=== PATIENT | female | born 1995 | race African-American/Black ===

== ENCOUNTER 2019-01-21 01:44 | Emergency (ER) | payer MEDICAID ==
[~2019-01-21] VITALS: Ht 162.6 cm; Wt 59.0 kg
[2019-01-21 02:05] VITALS: BP 129/70
[2019-01-21] MEDS ORDERED: DexAMETHasone SOD PHOS 10MG/1ML VIAL INJ IM ONE (05:00)
[2019-01-21] MEDS ORDERED: cefTRIAXone SOD 1,000 MG VL IM ONE (05:00)
[2019-01-21] MEDS ORDERED: BENZOCAINE (DENTAL) 20 % SPRAY 60ML MT ONE (05:00)
[2019-01-21] MEDS ORDERED: ACETAMINOPHEN/CODEINE#3 (300/30mg) TAB PO ONE (05:00)
== END 2019-01-21 05:57 | disposition home or self-care (01) ==
LOC: ER 01:44
DX: K08.89 Other specified disorders of teeth and supporting structures (principal); Z88.8 Allergy status to other drugs, medicaments and biological substances
CPT/HCPCS: 96372; 99283; J0696; J1100

== ENCOUNTER 2021-06-09 10:45 | Observation (INO) | payer MEDICAID ==
[~2021-06-09] VITALS: Ht 162.6 cm; Wt 69.4 kg
[2021-06-09 12:17] LABS: Basophils # (auto) 0 10 ^3/uL (0-0.2); Basophils % (auto) 0.4 % (0.0-2.0); Eosinophils # (auto) 0 10 ^3/uL (0-0.8); Eosinophils % (auto) 0.3 % (0.0-7.0); Hematocrit 32.4 % (36.0-46.0); Hemoglobin 11.4 g/dL (12.2-16.2); Lymphocytes # (auto) 0.4 10 ^3/uL (0.4-5.4); Lymphocytes % (auto) 4.5 % (10.0-50.0); Mean Corpuscular Hemoglobin 30.6 pg (28.0-32.0); Mean Corpuscular Hgb Conc. 35.2 g/dL (32.0-36.0); Mean Corpuscular Volume 86.8 fL (80.0-100.0); Monocytes # (auto) 1.3 10 ^3/uL (0-1.3); Monocytes % (auto) 15.6 % (0.0-12.0); Neutrophils # (auto) 6.8 10 ^3/uL (1.6-8.6); Neutrophils % (auto) 79.2 % (37.0-80.0); Red Blood Cells 3.73 10^6/uL (4.0-5.20); Red Cell Distribution Width 12.9 % (11.8-14.3); White Blood Cell 8.6 10^3/uL (4.4-10.8)
[2021-06-09 12:33] LABS: Albumin 2.6 g/dL (3.4-5.0); Calcium 8.3 mg/dL (8.5-10.1); Potassium 3.7 mmol/L (3.5-5.1)
[2021-06-09 12:37] LABS: BUN/Creatinine Ratio 10.2; Bilirubin, Total 0.2 mg/dL (0.2-1.0); Total Protein 6.6 g/dL (6.4-8.2)
[2021-06-09 12:55] LABS: Urine Bacteria NONE SEEN /hpf (None Seen); Urine Blood Negative /uL (Negative); Urine Mucus FEW (None Seen); Urine Specific Gravity 1.019 (1.001-1.035); Urine WBC 1 /hpf (0 - 5)
[2021-06-09 13:00] LABS: Amphetamine Screen, Urine NEGATIVE (NEGATIVE); Barbiturate Scree,Urine NEGATIVE (NEGATIVE); Benzodiazephine Screen, Urine NEGATIVE (NEGATIVE); Cannabinoid Screen, Urine POSITIVE (NEGATIVE); Cocaine Screen, Urine NEGATIVE (NEGATIVE); Opiate Scree,Urine NEGATIVE (NEGATIVE); Phencyclidine Screen, Urine NEGATIVE (NEGATIVE)
== END 2021-06-09 14:03 | disposition home or self-care (01) ==
LOC: LDRP 10:45
PROVIDERS: ADMIT Obstetrics & Gynecology; ATTEND Obstetrics & Gynecology
DX: O98.512 Other viral diseases complicating pregnancy, second trimester (principal); U07.1 COVID-19; O60.02 Preterm labor without delivery, second trimester; Z3A.25 25 weeks gestation of pregnancy
CPT/HCPCS: 36415; 59025; 76775; 76805; 80053; 80307; 81001; 81002; 85025; 87426; 94760; G0378; G0379

== ENCOUNTER 2022-02-06 11:27 | Inpatient (IN) | payer MEDICAID ==
[~2022-02-06] VITALS: Ht 162.6 cm; Wt 72.3 kg
[2022-02-06 12:13] LABS: Basophils # (auto) 0 10 ^3/uL (0-0.2); Basophils % (auto) 0.4 % (0.0-2.0); Eosinophils # (auto) 0 10 ^3/uL (0-0.8); Hematocrit 39.8 % (36.0-46.0); Hemoglobin 12.7 g/dL (12.2-16.2); Lymphocytes # (auto) 1.3 10 ^3/uL (0.4-5.4); Lymphocytes % (auto) 10.6 % (10.0-50.0); Mean Corpuscular Hemoglobin 26.4 pg (28.0-32.0); Mean Corpuscular Hgb Conc. 31.9 g/dL (32.0-36.0); Mean Corpuscular Volume 82.7 fL (80.0-100.0); Monocytes # (auto) 0.7 10 ^3/uL (0-1.3); Monocytes % (auto) 6.1 % (0.0-12.0); Neutrophils % (auto) 82.9 % (37.0-80.0); Red Blood Cells 4.81 10^6/uL (4.0-5.20); Red Cell Distribution Width 15.1 % (11.8-14.3)
[2022-02-06] MEDS ORDERED: ACETAMINOPHEN 325 MG TAB PO ONE (12:15)
[2022-02-06] MEDS ORDERED: LACTATED RINGER'S 1,000 ML IV ONE (12:15)
[2022-02-06 12:29] LABS: Albumin 3.7 g/dL (3.4-5.0); Magnesium 1.9 mg/dL (1.6-2.6)
[2022-02-06 12:34] LABS: BUN/Creatinine Ratio 8.2; Bilirubin, Total 0.4 mg/dL (0.2-1.0); Total Protein 7.3 g/dL (6.4-8.2)
[2022-02-06] MEDS ORDERED: SODIUM CHLORIDE 0.9% 1,000 ML IV ONE ×2 (13:45→18:30)
[2022-02-06] MEDS ORDERED: CLINDAMYCIN 300MG IV 50 ML IV ONE (13:45)
[2022-02-06] MEDS ORDERED: IOHEXOL 300 MG/ML 100ML BOTTLE IJ ONE (13:52)
[2022-02-06] MEDS ORDERED: VANCOMYCIN 1GM/250ML 250 ML IV ONE (15:45)
[2022-02-06 15:46] LABS: Urine Bacteria NONE SEEN /hpf (None Seen); Urine Blood Negative /uL (Negative); Urine Specific Gravity 1.015 (1.001-1.035); Urine WBC 1 /hpf (0 - 5)
[2022-02-06] MEDS ORDERED: SODIUM CHLORIDE 0.9% 2,000 ML IV ONE (16:30)
[2022-02-06] MEDS ORDERED: VANCOMYCIN PER PHARMACY 0 MG IV SCH (18:30)
[2022-02-06] MEDS ORDERED: ONDANSETRON HCL 4 MG/2 ML VIAL IV PRN (18:30)
[2022-02-06] MEDS ORDERED: CLINDAMYCIN 600MG IV 50 ML IV ONE (18:30)
[2022-02-06 19:54] LABS: INR 1.14 (0.9-1.15)
[2022-02-06] MEDS: MORPHINE SULFATE INJ 2 MG/ml SYRG IV PRN (21:14)
[2022-02-06 22:48] VITALS: BP 95/52
[2022-02-07] MEDS: MORPHINE SULFATE INJ 2 MG/ml SYRG IV PRN ×2 (02:22→22:34)
[2022-02-07 05:00] VITALS: BP 97/46
[2022-02-07 05:12] LABS: Potassium 3.7 mmol/L (3.5-5.1)
[2022-02-07 05:17] LABS: Bilirubin, Total 0.4 mg/dL (0.2-1.0); Calcium 8.2 mg/dL (8.5-10.1); Total Protein 6.8 g/dL (6.4-8.2)
[2022-02-07 05:52] LABS: Basophils # (auto) 0 10 ^3/uL (0-0.2); Basophils % (auto) 0.2 % (0.0-2.0); Eosinophils # (auto) 0 10 ^3/uL (0-0.8); Mean Corpuscular Hemoglobin 26.8 pg (28.0-32.0); Mean Corpuscular Hgb Conc. 32.4 g/dL (32.0-36.0); Mean Corpuscular Volume 82.8 fL (80.0-100.0); Monocytes # (auto) 1.4 10 ^3/uL (0-1.3)
[2022-02-07 05:57] LABS: Eosinophils % (auto) 0.1 % (0.0-7.0); Hematocrit 35.9 % (36.0-46.0); Hemoglobin 11.6 g/dL (12.2-16.2); Lymphocytes # (auto) 2.1 10 ^3/uL (0.4-5.4); Lymphocytes % (auto) 17.6 % (10.0-50.0); Monocytes % (auto) 12.1 % (0.0-12.0); Neutrophils # (auto) 8.3 10 ^3/uL (1.6-8.6); Red Blood Cells 4.33 10^6/uL (4.0-5.20); Red Cell Distribution Width 14.9 % (11.8-14.3); White Blood Cell 11.9 10^3/uL (4.4-10.8)
[2022-02-07] MEDS: VANCOMYCIN 1GM/250ML 250 ML IV SCH ×2 (06:44→19:43)
[2022-02-07 09:00] VITALS: BP 117/71
[2022-02-07] MEDS: ENOXAPARIN SOD 40 MG/0.4 ML SYRINGE SC SCH (09:01)
[2022-02-07 13:00] VITALS: BP 116/67
[2022-02-07] MEDS: levoFLOXacin 500MG 100 ML IV SCH (16:00)
[2022-02-07 17:00] VITALS: BP 102/93
[2022-02-07 22:00] VITALS: BP 114/81
[2022-02-08] MEDS ORDERED: traMADol HCL 50 MG TAB PO PRN (01:30)
[2022-02-08] MEDS ORDERED: IBUPROFEN 400 MG TAB PO PRN (01:30)
[2022-02-08 05:00] VITALS: BP 120/72
[2022-02-08 06:59] LABS: Basophils # (auto) 0 10 ^3/uL (0-0.2); Basophils % (auto) 0.2 % (0.0-2.0); Eosinophils # (auto) 0 10 ^3/uL (0-0.8); Eosinophils % (auto) 0.4 % (0.0-7.0); Hematocrit 34.6 % (36.0-46.0); Hemoglobin 11.4 g/dL (12.2-16.2); Lymphocytes # (auto) 2.5 10 ^3/uL (0.4-5.4); Lymphocytes % (auto) 27.1 % (10.0-50.0); Mean Corpuscular Hemoglobin 27.2 pg (28.0-32.0); Mean Corpuscular Volume 82.5 fL (80.0-100.0); Monocytes # (auto) 1.1 10 ^3/uL (0-1.3); Monocytes % (auto) 11.5 % (0.0-12.0); Neutrophils # (auto) 5.7 10 ^3/uL (1.6-8.6); Neutrophils % (auto) 60.8 % (37.0-80.0); Nucleated Red Blood Cells % 0.1 %; Red Blood Cells 4.19 10^6/uL (4.0-5.20); Red Cell Distribution Width 15.1 % (11.8-14.3); White Blood Cell 9.3 10^3/uL (4.4-10.8)
[2022-02-08 07:14] LABS: Albumin 2.8 g/dL (3.4-5.0); Calcium 8.6 mg/dL (8.5-10.1); Potassium 3.7 mmol/L (3.5-5.1)
[2022-02-08 07:16] LABS: BUN/Creatinine Ratio 4.1; Phosphorus 3.5 mg/dL (2.5-4.90)
[2022-02-08 09:00] VITALS: BP 133/94
[2022-02-08] MEDS: VANCOMYCIN 1GM/250ML 250 ML IV SCH (09:15)
[2022-02-08] MEDS: ENOXAPARIN SOD 40 MG/0.4 ML SYRINGE SC SCH (09:16)
[2022-02-08] MEDS: levoFLOXacin 500MG 100 ML IV SCH (09:19)
[2022-02-08] MEDS ORDERED: FAMOTIDINE 20 MG TAB PO SCH (10:00)
[2022-02-13] MEDS ORDERED: VANCOMYCIN 1GM/250ML 250 ML IV STA (00:03)
== END 2022-02-08 14:35 | disposition left against medical advice (07) | DRG 385 ==
LOC: ER 11:33 → OVERFLOW 18:20 → WEST WING 22:20
PROVIDERS: ADMIT Registered Nurse; ATTEND Hospitalist
DX: N61.1 Abscess of the breast and nipple (principal); Z53.29 Procedure and treatment not carried out because of patient's decision for other reasons; Z98.82 Breast implant status
CPT/HCPCS: 36415; 71260; 76642; 80048; 80053; 80069; 80202; 81001; 81025; 83036; 83615; 83735; 83880; 84484; 84702; 85025; 85379; 85610; 87040; 87076; 93005; 96361; 96365; 96375; G0378; J1956; J2405; J3490

== ENCOUNTER 2022-02-12 18:48 | Inpatient (IN) | payer MEDICAID ==
[~2022-02-12] VITALS: Ht 162.6 cm; Wt 61.0 kg
[2022-02-12 19:53] LABS: Urine Bacteria NONE SEEN /hpf (None Seen); Urine Blood Negative /uL (Negative); Urine Mucus FEW (None Seen); Urine Specific Gravity 1.026 (1.001-1.035); Urine WBC 1 /hpf (0 - 5)
[2022-02-12 22:02] LABS: Basophils # (auto) 0.1 10 ^3/uL (0-0.2); Basophils % (auto) 0.6 % (0.0-2.0); Eosinophils # (auto) 0.1 10 ^3/uL (0-0.8); Eosinophils % (auto) 0.7 % (0.0-7.0); Hematocrit 36.5 % (36.0-46.0); Hemoglobin 11.6 g/dL (12.2-16.2); Lymphocytes # (auto) 2.4 10 ^3/uL (0.4-5.4); Lymphocytes % (auto) 19.8 % (10.0-50.0); Mean Corpuscular Hemoglobin 25.8 pg (28.0-32.0); Mean Corpuscular Hgb Conc. 31.8 g/dL (32.0-36.0); Mean Corpuscular Volume 81.2 fL (80.0-100.0); Monocytes # (auto) 1.4 10 ^3/uL (0-1.3); Monocytes % (auto) 11.2 % (0.0-12.0); Neutrophils # (auto) 8.2 10 ^3/uL (1.6-8.6); Neutrophils % (auto) 67.7 % (37.0-80.0); Red Cell Distribution Width 14.6 % (11.8-14.3); White Blood Cell 12.2 10^3/uL (4.4-10.8)
[2022-02-12 22:17] LABS: Albumin 3.4 g/dL (3.4-5.0); BUN/Creatinine Ratio 8.9; Calcium 8.8 mg/dL (8.5-10.1); Potassium 3.7 mmol/L (3.5-5.1)
[2022-02-12 22:20] LABS: Bilirubin, Total 0.2 mg/dL (0.2-1.0); Total Protein 7.2 g/dL (6.4-8.2)
[2022-02-13] MEDS ORDERED: VANCOMYCIN 1GM/250ML 250 ML IV ONE (05:00)
[2022-02-13] MEDS ORDERED: DOCUSATE SOD 100 MG CAP PO PRN ×2 (09:00→21:30)
[2022-02-13] MEDS ORDERED: HYDROcodone-ACET 5/325MG TAB PO PRN (09:00)
[2022-02-13] MEDS ORDERED: ACETAMINOPHEN 325 MG TAB PO PRN ×2 (09:00→21:30)
[2022-02-13] MEDS ORDERED: ONDANSETRON HCL 4 MG/2 ML VIAL IV PRN ×2 (09:00→21:30)
[2022-02-13] MEDS ORDERED: MORPHINE SULFATE INJ 2 MG/ml SYRG IV PRN (09:00)
[2022-02-13] MEDS ORDERED: PIPERACILLIN-TAZOB 3.375GM 100 ML IV SCH (09:15)
[2022-02-13] MEDS: SODIUM CHLORIDE 0.9% 1,000 ML IV SCH ×2 (09:38→17:45)
[2022-02-13] MEDS ORDERED: ENOXAPARIN SOD 40 MG/0.4 ML SYRINGE SC SCH (10:00)
[2022-02-13 17:34] VITALS: BP 118/82
[2022-02-13 17:46] VITALS: BP 118/82
[2022-02-13 18:00] VITALS: BP 118/82
[2022-02-13] MEDS: PIPERACILLIN-TAZOB 3.375GM 100 ML IV SCH (18:00)
[2022-02-13 22:00] VITALS: BP 112/76
[2022-02-14] MEDS: SODIUM CHLORIDE 0.9% 1,000 ML IV SCH ×2 (01:40→09:54)
[2022-02-14] MEDS: PIPERACILLIN-TAZOB 3.375GM 100 ML IV SCH ×3 (04:54→17:45)
[2022-02-14 05:00] VITALS: BP 105/62
[2022-02-14 06:13] LABS: Basophils # (auto) 0 10 ^3/uL (0-0.2); Basophils % (auto) 0.3 % (0.0-2.0); Eosinophils # (auto) 0.1 10 ^3/uL (0-0.8); Eosinophils % (auto) 1.2 % (0.0-7.0); Hematocrit 34.7 % (36.0-46.0); Hemoglobin 11.5 g/dL (12.2-16.2); Lymphocytes # (auto) 1.9 10 ^3/uL (0.4-5.4); Lymphocytes % (auto) 19.9 % (10.0-50.0); Mean Corpuscular Hgb Conc. 33.3 g/dL (32.0-36.0); Mean Corpuscular Volume 81.1 fL (80.0-100.0); Monocytes % (auto) 9.7 % (0.0-12.0); Neutrophils # (auto) 6.8 10 ^3/uL (1.6-8.6); Neutrophils % (auto) 68.9 % (37.0-80.0); Red Blood Cells 4.28 10^6/uL (4.0-5.20); Red Cell Distribution Width 14.7 % (11.8-14.3); White Blood Cell 9.8 10^3/uL (4.4-10.8)
[2022-02-14 06:33] LABS: Potassium 4.1 mmol/L (3.5-5.1)
[2022-02-14 06:38] LABS: BUN/Creatinine Ratio 7.8; Calcium 8.9 mg/dL (8.5-10.1)
[2022-02-14 06:41] LABS: Bilirubin, Total 0.2 mg/dL (0.2-1.0); Total Protein 6.8 g/dL (6.4-8.2)
[2022-02-14 08:23] VITALS: BP 109/76
[2022-02-14] MEDS: ENOXAPARIN SOD 40 MG/0.4 ML SYRINGE SC SCH (09:22)
[2022-02-14] MEDS: HYDROcodone-ACET 5/325MG TAB PO PRN ×2 (09:46→16:09)
[2022-02-14] MEDS ORDERED: levoFLOXacin 500MG 100 ML IV SCH (10:00)
[2022-02-14 12:01] VITALS: BP 114/66
[2022-02-14 16:47] VITALS: BP 101/61
[2022-02-14] MEDS: MORPHINE SULFATE INJ 2 MG/ml SYRG IV PRN (21:19)
[2022-02-14 22:00] VITALS: BP 111/76
[2022-02-15] MEDS: PIPERACILLIN-TAZOB 3.375GM 100 ML IV SCH ×4 (02:12→18:24)
[2022-02-15 05:00] VITALS: BP 98/59
[2022-02-15] MEDS: HYDROcodone-ACET 5/325MG TAB PO PRN ×3 (05:01→22:56)
[2022-02-15 07:55] VITALS: BP 114/66
[2022-02-15 08:54] VITALS: BP 114/66
[2022-02-15] MEDS: MORPHINE SULFATE INJ 2 MG/ml SYRG IV PRN ×2 (11:12→18:25)
[2022-02-15] MEDS: ENOXAPARIN SOD 40 MG/0.4 ML SYRINGE SC SCH (11:12)
[2022-02-15 12:52] VITALS: BP 114/73
[2022-02-15 17:00] VITALS: BP 103/63
[2022-02-15 22:00] VITALS: BP 111/70
[2022-02-16] MEDS: PIPERACILLIN-TAZOB 3.375GM 100 ML IV SCH ×3 (01:45→18:20)
[2022-02-16 05:00] VITALS: BP 91/51
[2022-02-16 09:00] VITALS: BP 125/75
[2022-02-16] MEDS: HYDROcodone-ACET 5/325MG TAB PO PRN ×2 (09:55→20:01)
[2022-02-16] MEDS: ENOXAPARIN SOD 40 MG/0.4 ML SYRINGE SC SCH (10:00)
[2022-02-16 13:00] VITALS: BP 111/79
[2022-02-16 16:22] VITALS: BP 106/68
[2022-02-16 22:00] VITALS: BP 125/67
[2022-02-17] MEDS: PIPERACILLIN-TAZOB 3.375GM 100 ML IV SCH ×2 (01:52→10:01)
[2022-02-17 05:00] VITALS: BP 109/74
[2022-02-17 09:00] VITALS: BP 109/68
[2022-02-17] MEDS: ENOXAPARIN SOD 40 MG/0.4 ML SYRINGE SC SCH (10:00)
[2022-02-17] MEDS: HYDROcodone-ACET 5/325MG TAB PO PRN (10:02)
[2022-02-17 13:00] VITALS: BP 102/70
== END 2022-02-17 15:05 | disposition left against medical advice (07) | DRG 385 ==
LOC: ER 18:48 → OVERFLOW 02-13 14:27 → EAST 02-13 17:22
PROVIDERS: ADMIT Internal Medicine; ATTEND Internal Medicine
DX: N61.1 Abscess of the breast and nipple (principal); E88.09 Other disorders of plasma-protein metabolism, not elsewhere classified; R79.9 Abnormal finding of blood chemistry, unspecified; D64.9 Anemia, unspecified; N39.0 Urinary tract infection, site not specified; Z20.822 Contact with and (suspected) exposure to COVID-19; Z53.29 Procedure and treatment not carried out because of patient's decision for other reasons; Z98.82 Breast implant status; Z91.013 Allergy to seafood; Z88.8 Allergy status to other drugs, medicaments and biological substances
CPT/HCPCS: 36415; 76642; 80053; 81001; 83605; 84484; 84702; 85025; 87040; 87081; 93005; 93306; 96365; 96367; 96375; G0378; J2405; J2543

== ENCOUNTER 2023-12-24 08:27 | Inpatient (IN) | payer OTHER ==
[~2023-12-24] VITALS: Ht 162.6 cm; Wt 90.7 kg
[2023-12-24] MEDS ORDERED: PHISODERM TOP SOLN 240ML BTL TOP PRN (08:45)
[2023-12-24] MEDS ORDERED: WITCH HAZEL-GLYCERIN PAD TOP PRN (08:45)
[2023-12-24] MEDS ORDERED: DERMOPLAST 60ML BOTTLE TOP PRN (08:45)
[2023-12-24] MEDS ORDERED: LIDOCAINE 2%HCL (LOCAL ANESTH.) INJ 20ML MDV IJ PRN (08:45)
[2023-12-24 09:14] LABS: Basophils # (auto) 0 10 ^3/uL (0-0.2); Basophils % (auto) 0.1 % (0.0-2.0); Eosinophils # (auto) 0 10 ^3/uL (0-0.8); Eosinophils % (auto) 0.4 % (0.0-7.0); Hematocrit 30.8 % (36.0-46.0); Lymphocytes # (auto) 2.9 10 ^3/uL (0.4-5.4)
[2023-12-24 09:15] LABS: Hemoglobin 10.1 g/dL (12.2-16.2); Lymphocytes % (auto) 24.5 % (10.0-50.0); Mean Corpuscular Hemoglobin 24.8 pg (28.0-32.0); Mean Corpuscular Hgb Conc. 32.8 g/dL (32.0-36.0); Mean Corpuscular Volume 75.4 fL (80.0-100.0); Monocytes # (auto) 1.4 10 ^3/uL (0-1.3); Monocytes % (auto) 12.1 % (0.0-12.0); Neutrophils # (auto) 7.5 10 ^3/uL (1.6-8.6); Neutrophils % (auto) 62.9 % (37.0-80.0); Nucleated Red Blood Cells % 0.1 %; Red Blood Cells 4.08 10^6/uL (4.0-5.20); Red Cell Distribution Width 16.2 % (11.8-14.3)
[2023-12-24 09:29] LABS: Alanine Aminotransferase 11 U/L (7-40); Albumin 3.6 g/dL (3.2-4.8); Alkaline Phosphatase 244 U/L (46-116); Anion Gap 11 (5-15); Aspartate Aminotransferase 13 U/L (13-40); BUN/Creatinine Ratio 7.9 (10.0-20.0); Bilirubin, Total 0.3 mg/dL (0.2-1.0); Blood Urea Nitrogen 5 mg/dL (9-23); Calcium 9.3 mg/dL (8.7-10.4); Carbon Dioxide 19 mmol/L (20-30); Chloride 107 mmol/L (98-107); Glucose 93 mg/dL (74-106); INR 0.96 (0.9-1.15); Partial Thromboplastin Time 24.6 SEC (24.5-34.5); Potassium 3.5 mmol/L (3.5-5.1); Prothrombin Time 10.2 sec (9.3-11.8); Sodium 137 mmol/L (136-145); Total Protein 6.4 g/dL (5.7-8.2)
[2023-12-24] MEDS: LACTATED RINGER'S 1,000 ML IV SCH (09:57)
[2023-12-24] MEDS: ROPIVACAINE HCL 200 ML ONE (10:04)
[2023-12-24] MEDS: ePHEDrine SULFATE 50 MG/ML AMP ONE (10:14)
[2023-12-24 11:49] LABS: Urine Bacteria None Seen /hpf (None Seen)
[2023-12-24 12:10] LABS: Amphetamine Screen, Urine Neg (NEGATIVE); Barbiturate Scree,Urine Neg (NEGATIVE); Benzodiazephine Screen, Urine Neg (NEGATIVE); Cocaine Screen, Urine Neg (NEGATIVE); Opiate Scree,Urine Neg (NEGATIVE)
[2023-12-24 12:11] LABS: Cannabinoid Screen, Urine Neg (NEGATIVE); Phencyclidine Screen, Urine Neg (NEGATIVE); Urine Blood Negative /uL (Negative); Urine Clarity Clear (Clear); Urine Color Yellow (Yellow); Urine Mucus FEW (None Seen); Urine Protein, UAD TRACE (Negative); Urine Specific Gravity 1.025 (1.001-1.035); Urine Urobilinogen Normal (Negative); Urine WBC 1 /hpf (0 - 5); Urine pH 6.5 (5.0-9.0)
[2023-12-24] MEDS: LACT. RINGERS/OXYTOCIN 20UNITS 500 ML IV ONE ×2 (13:08→14:49)
[2023-12-24] MEDS: PENICILLIN G POT 5MIL/D5 50ML 50 ML IV ONE (14:43)
[2023-12-24] MEDS ORDERED: ONDANSETRON HCL 4 MG/2 ML VIAL IV PRN (18:30)
[2023-12-24 19:00] VITALS: BP 118/79; PULSE 96; RESP 16; TEMP 98; O2SAT 98
[2023-12-24] MEDS: IBUPROFEN 600 MG TAB PO PRN (19:23)
[2023-12-24] MEDS: ACETAMINOPHEN 325 MG TAB PO PRN (22:12)
[2023-12-24 23:00] VITALS: BP 106/53; PULSE 83; RESP 16; TEMP 98.1; O2SAT 97
[2023-12-25 03:00] VITALS: BP 111/60; PULSE 88; RESP 16; TEMP 97.9; O2SAT 98
[2023-12-25 07:00] VITALS: BP 120/67; PULSE 69; RESP 15; TEMP 98.3; O2SAT 98
[2023-12-25 11:00] VITALS: BP 120/78; PULSE 75; RESP 18; TEMP 98.1; O2SAT 98
[2023-12-25 15:00] VITALS: BP 118/67; PULSE 65; RESP 18; TEMP 98.2; O2SAT 98
[2023-12-26 08:39] LABS: Hepatitis B Surface Antigen Negative (Negative)
[2023-12-26 09:00] LABS: Hepatitis C Antibody Negative (Negative)
[2023-12-27 01:06] LABS: Rubella Antibodies, IgG 3.43 index (Immune >0.99)
[2023-12-27 06:06] LABS: RPR Non Reactive (Non Reactive)
== END 2023-12-25 16:25 | disposition home or self-care (01) | DRG 560 ==
LOC: LDRP 08:27 → OBSVTOIN 08:38
PROVIDERS: ADMIT Obstetrics & Gynecology; ATTEND Obstetrics & Gynecology
PROC: 10E0XZZ Delivery of Products of Conception, External Approach (ICD-10-PCS; principal; 2023-12-24)
DX: O80 Encounter for full-term uncomplicated delivery (principal); Z37.0 Single live birth; Z3A.38 38 weeks gestation of pregnancy
CPT/HCPCS: 36415; 59025; 59409; 62282; 80053; 80307; 81001; 81002; 85025; 85610; 85730; 86592; 86703; 86762; 86803; 86850; 86900; 86901; 87340; 94760; 96360; 96361; 96365; 96374; G0378; J2540; J2590